=== PATIENT | female | born 1950 | race Caucasian/White ===

== ENCOUNTER 2016-12-07 15:07 | Inpatient (IN) | payer OTHER, MEDICARE ==
[2016-12-07] MEDS ORDERED: ACETAMINOPHEN 500 MG TAB PO ONE (15:18)
[2016-12-07] MEDS ORDERED: NS 1,000 ML IV ONE ×2 (15:28)
--- NOTE | 2016-12-07 15:28 | EDPHY ---
H & P Stated Complaint: fever, dizzy since this am, LBP, sent from pcp maral barrow? Time Seen by Provider: 12/07/16 15:27 HPI/ROS: CHIEF COMPLAINT: Fever, nausea, back pain HISTORY OF PRESENT ILLNESS: The patient presents to the ED with complaints of fever, nausea and mild low back pain that have developed over the past 2 days. The patient denies acute cough, significant abdominal pain, vomiting or diarrhea. She does complain of mild nausea. The patient denies dysuria or urinary frequency. She has no history of recent antibiotic use. She denies additional acute complaints. The patient was diagnosed with an intestinal E coli infection at the end of October. The patient was treated with an unknown antibiotic at that point time. She believe she stop taking antibiotics 3 weeks ago. REVIEW OF SYSTEMS: A comprehensive 10 point review of systems is otherwise negative aside from elements mentioned in the history of present illness. Source: Patient Exam Limitations: No limitations - Personal History Current Tetanus/Diphtheria Vaccine: Unsure Current Tetanus Diphtheria and Acellular Pertussis (TDAP): Unsure - Medical/Surgical History Hx Asthma: No Hx Chronic Respiratory Disease: No Hx Diabetes: No Hx Cardiac Disease: No Hx Renal Disease: No Hx Cirrhosis: No Hx Alcoholism: No Hx HIV/AIDS: No Hx Splenectomy or Spleen Trauma: No Other PMH: depression - Social History Smoking Status: Never smoked Alcohol Use: None Drug Use: None - Physical Exam Exam: General Appearance: Alert, no distress Eyes: Pupils equal and round no pallor or injection ENT, Mouth: Mucous membranes moist Respiratory: There are no retractions, lungs are clear to auscultation Cardiovascular: Regular rate and rhythm Gastrointestinal: Minimal tenderness to palpation in the left lower quadrant, mild left CVA tenderness Neurological: A&O, normal motor function, normal sensory exam, normal cranial nerves Skin: Warm and dry, no rashes Musculoskeletal: Neck is supple nontender Extremities: symmetrical, full range of motion Constitutional: Initial Vital Signs Temperature (C) 36.5 C 12/07/16 15:12 Heart Rate 86 12/07/16 15:12 Respiratory Rate 16 12/07/16 15:12 Blood Pressure 117/74 12/07/16 15:12 O2 Sat (%) 94 12/07/16 15:12 O2 Delivery Mode Room Air Allergies/Adverse Reactions: levofloxacin [From Levaquin] Allergy (Verified 07/25/11 10:46) Other-Enter Comments trimethoprim Allergy (Verified 07/25/11 10:45) LOBSTER Allergy (Uncoded 07/25/11 10:47) Vomiting Home Medications: Medication Instructions Recorded Aspirin [Aspirin 81mg (*)] 81 mg PO DAILY 12/07/16 Cholecalciferol Vit D3 [Vitamin D3 1,000 units PO DAILY 12/07/16 (*)] Clobetasol 0.05% [Temovate Cream] 1 jessica TP BID PRN 12/07/16 Escitalopram Oxalate [Lexapro] 5 mg PO DAILY@18 12/07/16 Losartan Potassium [Cozaar] 100 mg PO DAILY 12/07/16 Psyllium Husk/Aspartame [Metamucil 3.4 gm PO DAILY PRN 12/07/16 Fiber Singles Packet] Vitamin B Complex [B Complex] 1 each PO DAILY 12/07/16 Medical Decision Making ED Course/Re-evaluation: The patient presents to the ED with a fever of 104 and reported positive urinalysis noted at her primary care physician's office. Patient does have some left CVA tenderness on exam. The patient had an IV established and blood cultures x2 are obtained. Patient's initial venous lactate is reassuring. The patient's white cell count is slightly elevated and she is noted to have evidence of hyponatremia. A confirmatory urinalysis is currently pending. The patient did have an IV established. She received 2 L of normal saline. The patient will be started on IV ceftriaxone. Given the patient's fever and hyponatremia as well as concurrent generalized weakness I do feel she should be admitted to the hospital for observation this evening. Consultation was made with Dr. Brandi Robison from the hospitalist service who will admit the patient. 3:15pm: Still awaiting confirmatory UA. Follow-up will be deferred to hospitalist. Differential Diagnosis: Differential diagnosis considered includes bacteremia, pyelonephritis, cystitis , metabolic abnormality, dehydration, viral syndrome - Data Points Laboratory Results: Laboratory Results 12/07/16 15:44 12/07/16 15:44 12/07/16 12/07/16 12/07/16 15:44 15:44 15:44 WBC 10.61 10^3/uL H 10^3/uL (3.80-9.50) RBC 4.61 10^6/uL 10^6/uL (4.18-5.33) Hgb 14.4 g/dL g/dL (12.6-16.3) Hct 42.6 % % (38.0-47.0) MCV 92.4 fL fL (81.5-99.8) MCH 31.2 pg pg (27.9-34.1) MCHC 33.8 g/dL g/dL (32.4-36.7) RDW 13.8 % % (11.5-15.2) Plt Count 200 10^3/uL 10^3/uL (150-400) MPV 10.2 fL fL (8.7-11.7) Neut % (Auto) 87.8 % H % (39.3-74.2) Lymph % (Auto) 3.9 % L % (15.0-45.0) [place] % (Auto) 7.4 % % (4.5-13.0) Eos % (Auto) 0.0 % L % (0.6-7.6) Baso % (Auto) 0.2 % L % (0.3-1.7) Nucleat RBC Rel Count 0.0 % % (0.0-0.2) Absolute Neuts (auto) 9.32 10^3/uL H 10^3/uL (1.70-6.50) Absolute Lymphs (auto) 0.41 10^3/uL L 10^3/uL (1.00-3.00) Absolute Monos (auto) 0.79 10^3/uL 10^3/uL (0.30-0.80) Absolute Eos (auto) 0.00 10^3/uL L 10^3/uL (0.03-0.40) Absolute Basos (auto) 0.02 10^3/uL 10^3/uL (0.02-0.10) Absolute Nucleated RBC 0.00 10^3/uL 10^3/uL (0-0.01) Immature Gran % 0.7 % % (0.0-1.1) Immature Gran # 0.07 10^3/uL 10^3/uL (0.00-0.10) VBG Lactic Acid 1.7 mmol/L mmol/L (0.7-2.1) Sodium 125 mEq/L L mEq/L (134-144) Potassium 4.1 mEq/L mEq/L (3.5-5.2) Chloride 90 mEq/L L mEq/L (97-110) Carbon Dioxide 28 mEq/l mEq/l (22-31) Anion Gap 7 mEq/L L mEq/L (8-16) BUN 27 mg/dL H mg/dL (7-23) Creatinine 0.8 mg/dL mg/dL (0.6-1.0) Estimated GFR > 60 Glucose 134 mg/dL H mg/dL (70-100) Calcium 9.9 mg/dL mg/dL (8.5-10.4) Total Bilirubin 0.8 mg/dL mg/dL (0.1-1.4) Conjugated Bilirubin 0.4 mg/dL mg/dL (0.0-0.5) Unconjugated Bilirubin 0.4 mg/dL mg/dL (0.0-1.1) AST 32 IU/L IU/L (14-46) ALT 40 IU/L IU/L (9-52) Alkaline Phosphatase 58 IU/L IU/L (38-126) Total Protein 6.3 g/dL g/dL (6.3-8.2) Albumin 3.7 g/dL g/dL (3.5-5.0) Medications Given: Discontinued Medications Acetaminophen (Tylenol) 1,000 mg PO EDNOW ONE Stop: 12/07/16 15:19 Last Admin: 12/07/16 15:25 Dose: 1,000 mg Sodium Chloride (Ns) 1,000 mls @ 0 mls/hr IV ONCE ONE PRN Reason: Wide Open Stop: 12/07/16 15:29 Last Admin: 12/07/16 17:44 Dose: 1,000 mls Sodium Chloride (Ns) 1,000 mls @ 0 mls/hr IV ONCE ONE PRN Reason: Wide Open Stop: 12/07/16 15:29 Last Admin: 12/07/16 16:10 Dose: 1,000 mls Departure - Departure Disposition: [facility] Inpatient Acute Clinical Impression: Acute febrile illness, Dehydration, Hyponatremia Condition: Fair
[2016-12-07 16:04] LABS: % IMMATURE GRANULYOCYTES 0.7 % (0.0-1.1); ABSOLUTE IMMATURE GRANULOCYTES 0.07 10^3/uL (0.00-0.10); ADD DIFF? NO; ADD MORPH? NO; ADD SCAN? NO; ATYPICAL LYMPHOCYTE FLAG 10 (0-99); FRAGMENT RBC FLAG 0 (0-99); HEMATOCRIT 42.6 % (38.0-47.0); HEMOGLOBIN 14.4 g/dL (12.6-16.3); LEFT SHIFT FLG 0 (0-99); LIPEMIA HEMOLYSIS FLAG 90 (0-99); MEAN CELL HEMOGLOBIN 31.2 pg (27.9-34.1); MEAN CELL HEMOGLOBIN CONCENTR. 33.8 g/dL (32.4-36.7); MEAN CELL VOLUME 92.4 fL (81.5-99.8); MEAN PLATELET VOLUME 10.2 fL (8.7-11.7); PLATELET CLUMPS FLAG 0 (0-99); PLATELET COUNT 200 10^3/uL (150-400); RED BLOOD CELL COUNT 4.61 10^6/uL (4.18-5.33); RED CELL DISTRIBUTION WIDTH 13.8 % (11.5-15.2)
[2016-12-07 16:30] LABS: ALANINE AMINOTRANSFERASE 40 IU/L (9-52); ALBUMIN 3.7 g/dL (3.5-5.0); ALKALINE PHOSPHATASE 58 IU/L (38-126); ANION GAP 7 mEq/L (8-16); ASPARTATE AMINOTRANSFERASE 32 IU/L (14-46); BILIRUBIN,TOTAL 0.8 mg/dL (0.1-1.4); BILIRUBIN-CONJUGATED 0.4 mg/dL (0.0-0.5); BILIRUBIN-UNCONJUGATED 0.4 mg/dL (0.0-1.1); CALCIUM 9.9 mg/dL (8.5-10.4); CARBON DIOXIDE 28 mEq/l (22-31); CHLORIDE 90 mEq/L (97-110); CREATININE 0.8 mg/dL (0.6-1.0); GLOMERULAR FILTRATION RATE > 60; GLUCOSE 134 mg/dL (70-100); POTASSIUM 4.1 mEq/L (3.5-5.2); SODIUM 125 mEq/L (134-144); TOTAL PROTEIN 6.3 g/dL (6.3-8.2)
[2016-12-07] MEDS ORDERED: ONDANSETRON 4 MG/2 ML VIAL IVP PRN (17:18)
[2016-12-07] MEDS ORDERED: TEMAZEPAM 15 MG CAP PO PRN (17:18)
[2016-12-07] MEDS ORDERED: ONDANSETRON DISINTEGRATING 4 MG TAB PO PRN (17:18)
[2016-12-07] MEDS ORDERED: CLOBETASOL 0.05% 15 GM CRTUBE TP PRN (17:36)
[2016-12-07 17:37] LABS: COLOR AMBER; LEUKOCYTE ESTERASE,URINE NEGATIVE (NEGATIVE); NITRITE,URINE NEGATIVE (NEGATIVE)
[2016-12-07] MEDS ORDERED: CEFTRIAXONE 1 GM/DEXTROSE/50 ML BAG IV ONE (17:47)
[2016-12-07 17:49] LABS: MUCUS 1+ /lpf (NONE-1+)
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
--- NOTE | 2016-12-07 19:34 | CPEKG ---
Heart Rate: 57 RR Interval: 1053 P-R Interval: 196 QRSD Interval: 100 QT Interval: 404 QTC Interval: 394 P [place]: 65 QRS [place]: 18 T Wave [place]: 35 EKG Severity - BORDERLINE ECG - EKG Impression: SINUS RHYTHM EKG Impression: PROBABLE LEFT ATRIAL ABNORMALITY Electronically Signed By: Ayaan Emmanuel 08-Dec-2016 14:57:06
[2016-12-07] MEDS: ESCITALOPRAM OXALATE 10 MG TAB PO SCH (20:37)
[2016-12-07 20:47] LABS: ANION GAP 6 mEq/L (8-16); CALCIUM 8.6 mg/dL (8.5-10.4); CARBON DIOXIDE 25 mEq/l (22-31); CHLORIDE 97 mEq/L (97-110); CREATININE 0.6 mg/dL (0.6-1.0); GLOMERULAR FILTRATION RATE > 60; GLUCOSE 115 mg/dL (70-100); POTASSIUM 3.6 mEq/L (3.5-5.2); SODIUM 128 mEq/L (134-144)
[2016-12-07] MEDS ORDERED: NS W/ 20 KCl/L 1,000 ML IV SCH (21:15)
[2016-12-08] MEDS: ACETAMINOPHEN 325 MG TAB PO PRN ×4 (03:09→23:03)
[2016-12-08 06:07] LABS: % IMMATURE GRANULYOCYTES 0.5 % (0.0-1.1); ABSOLUTE IMMATURE GRANULOCYTES 0.04 10^3/uL (0.00-0.10); ADD DIFF? NO; ADD MORPH? NO; ADD SCAN? NO; ATYPICAL LYMPHOCYTE FLAG 0 (0-99); FRAGMENT RBC FLAG 0 (0-99); HEMATOCRIT 37.4 % (38.0-47.0); HEMOGLOBIN 12.5 g/dL (12.6-16.3); LEFT SHIFT FLG 10 (0-99); LIPEMIA HEMOLYSIS FLAG 80 (0-99); MEAN CELL HEMOGLOBIN CONCENTR. 33.4 g/dL (32.4-36.7); MEAN CELL VOLUME 92.8 fL (81.5-99.8); MEAN PLATELET VOLUME 10.6 fL (8.7-11.7); PLATELET CLUMPS FLAG 0 (0-99); PLATELET COUNT 171 10^3/uL (150-400); RED BLOOD CELL COUNT 4.03 10^6/uL (4.18-5.33); RED CELL DISTRIBUTION WIDTH 13.9 % (11.5-15.2)
[2016-12-08 06:25] LABS: ANION GAP 6 mEq/L (8-16); CALCIUM 8.8 mg/dL (8.5-10.4); CARBON DIOXIDE 22 mEq/l (22-31); CHLORIDE 101 mEq/L (97-110); CREATININE 0.6 mg/dL (0.6-1.0); GLOMERULAR FILTRATION RATE > 60; GLUCOSE 112 mg/dL (70-100); POTASSIUM 4.1 mEq/L (3.5-5.2); SODIUM 129 mEq/L (134-144)
[2016-12-08] MEDS: CHOLECALCIFEROL VIT D3 1,000 UNITS TAB PO SCH (08:56)
[2016-12-08] MEDS: ASPIRIN 81 MG CHEWABLE TAB PO SCH (08:56)
[2016-12-08] MEDS: AZITHROMYCIN IV 500 MG in D5W 250 ML IV SCH (10:02)
[2016-12-08] MEDS ORDERED: NON-FORMULARY NEW DRUG (Psyllium Husk/Aspartame [Metamucil Fiber Singles Packet] 3.4 GM) PO PRN (10:59)
[2016-12-08] MEDS ORDERED: PSYLLIUM METAMUCIL 1 PKT PO PRN (11:21)
[2016-12-08] MEDS: CALCIUM CARBONATE 500 MG TAB PO SCH (12:15)
--- NOTE | 2016-12-08 15:25 | HOSPPROG ---
Hospitalist Progress Note Assessment/Plan: 66-year-old female presents emergency room complaints of shortness of breath and weakness. This is my 1st encounter with the patient, chart reviewed. # pneumonia Chest x-ray shows left lower lobe infiltrate Continue IV Rocephin and azithromycin Supportive care # acute hypoxemic respiratory failure Continue supportive management # hyponatremia Improving Secondary to hypovolemia Continue supportive management Recheck labs in the a.m. # paroxysmal atrial fibrillation In normal sinus rhythm DC telemetry No further workup needed # disposition Continue supportive management Will transition to oral antibiotics when able Anticipate discharge in the next 1-2 days Changed to inpatient status given further need for IV antibiotic and supportive hospital care Reviewed with rn case mgr Subjective: Complaints of headache. Still having some periodic feelings of being cold. at bedside. No other specific issues. Objective: Vital Signs Temp Pulse Resp BP Pulse Ox 37.8 C 75 16 104/69 92 12/08/16 11:07 12/08/16 11:07 12/08/16 11:07 12/08/16 11:07 12/08/16 11:07 12/07/16 12/08/16 12/09/16 05:59 05:59 05:59 Intake Total 300 Output Total 150 Balance 150 - Physical Exam Constitutional: no apparent distress, not in pain, uncomfortable Eyes: PERRL, anicteric sclera, EOMI Ears, Nose, Mouth, Throat: moist mucous membranes, hearing normal, ears appear normal Cardiovascular: No JVD, No tachycardia, No edema Respiratory: no respiratory distress, no rales or rhonchi, reduced air movement Gastrointestinal: No tenderness, No ascites, No guarding Skin: warm, normal color, No erythema Musculoskeletal: normal joint ROM, no joint effusions, generalized weakness Neurologic: AAOx3 Psychiatric: interacting appropriately, not anxious, not encephalopathic ICD10 Worksheet Patient Problems: Problems Problem Status Onset Acute febrile illness Acute Dehydration Acute Hyponatremia Acute
[2016-12-08] MEDS ORDERED: NS 1,000 ML IV SCH (16:30)
[2016-12-08] MEDS: ESCITALOPRAM OXALATE 10 MG TAB PO SCH (16:43)
[2016-12-09] MEDS: AZITHROMYCIN IV 500 MG in D5W 250 ML IV SCH (08:05)
[2016-12-09] MEDS: CALCIUM CARBONATE 500 MG TAB PO SCH (08:10)
[2016-12-09] MEDS: ASPIRIN 81 MG CHEWABLE TAB PO SCH (08:10)
[2016-12-09] MEDS: CHOLECALCIFEROL VIT D3 1,000 UNITS TAB PO SCH (08:10)
[2016-12-09] MEDS: ACETAMINOPHEN 325 MG TAB PO PRN ×2 (08:11→17:54)
[2016-12-09] MEDS: VITAMIN B COMPLEX 1 EA CAP/TAB PO SCH (08:11)
[2016-12-09] MEDS ORDERED: VITAMIN B COMPLEX 1 EA CAP/TAB PO SCH (09:00)
[2016-12-09 09:27] LABS: HEMATOCRIT 35.9 % (38.0-47.0); HEMOGLOBIN 12.3 g/dL (12.6-16.3); MEAN CELL HEMOGLOBIN 31.5 pg (27.9-34.1); MEAN CELL HEMOGLOBIN CONCENTR. 34.3 g/dL (32.4-36.7); MEAN CELL VOLUME 92.1 fL (81.5-99.8); RED BLOOD CELL COUNT 3.9 10^6/uL (4.18-5.33); RED CELL DISTRIBUTION WIDTH 14.2 % (11.5-15.2)
[2016-12-09 09:52] LABS: ANION GAP 3 mEq/L (8-16); CARBON DIOXIDE 25 mEq/l (22-31); CHLORIDE 99 mEq/L (97-110); CREATININE 0.5 mg/dL (0.6-1.0); GLOMERULAR FILTRATION RATE > 60; GLUCOSE 132 mg/dL (70-100); POTASSIUM 3.5 mEq/L (3.5-5.2); SODIUM 127 mEq/L (134-144)
--- NOTE | 2016-12-09 11:04 | HOSPPROG ---
Hospitalist Progress Note Assessment/Plan: 66-year-old female presents emergency room complaints of shortness of breath and weakness. Reviewed with Dr Robison # pneumonia Chest x-ray shows left lower lobe infiltrate Continue IV Rocephin and azithromycin Supportive care BC NGTD # acute hypoxemic respiratory failure Continue supportive management better today #Fever BC NGTD likely related to PNA watch #Diarrhea cont to follow # hyponatremia multifactorial Secondary to hypovolemia and low salt diet Continue supportive management Recheck labs in the a.m. now with diarrhea fluid restriction, consider salt tabs if not improving # paroxysmal atrial fibrillation In normal sinus rhythm DC telemetry No further workup needed # disposition Continue supportive management Will transition to oral antibiotics when able Anticipate discharge in the next 1-2 days Changed to inpatient status given further need for IV antibiotic and supportive hospital care Reviewed with catalytic case operator D/W pt and at bedside Rec FU CXR 7 days after abx complete Subjective: Feeling ok. Had some diarrhea last night and today. Didn't sleep well. No pain currently. Objective: Vital Signs Temp Pulse Resp BP Pulse Ox 36.7 C 70 22 H 128/84 H 95 12/09/16 08:00 12/09/16 08:00 12/09/16 08:00 12/09/16 08:00 12/09/16 08:00 Laboratory Results 12/09/16 09:15 12/09/16 09:15 12/08/16 12/09/16 12/10/16 05:59 05:59 05:59 Intake Total 1650 Output Total 1350 Balance 300 - Physical Exam Constitutional: appears nourished, not in pain, chronically ill appearing Eyes: PERRL, anicteric sclera, EOMI Ears, Nose, Mouth, Throat: moist mucous membranes, hearing normal, ears appear normal Cardiovascular: No JVD, No tachycardia, No bradycardia Respiratory: no respiratory distress, no rales or rhonchi, reduced air movement Gastrointestinal: No tenderness, No ascites, No guarding Skin: warm, normal color, No erythema Musculoskeletal: normal joint ROM, no joint effusions, generalized weakness Neurologic: AAOx3 Psychiatric: interacting appropriately, not encephalopathic, thought process linear, anxious ICD10 Worksheet Patient Problems: Problems Problem Status Onset Chronic Disease Mgmt/Transitional Care Acute Acute febrile illness Acute Dehydration Acute Hyponatremia Acute
[2016-12-09] MEDS: ESCITALOPRAM OXALATE 10 MG TAB PO SCH (17:55)
[2016-12-10] MEDS: oxyCODONE IR 5 MG TAB PO PRN ×2 (00:10→04:31)
[2016-12-10] MEDS: ACETAMINOPHEN 325 MG TAB PO PRN (05:00)
[2016-12-10 06:01] LABS: ANION GAP 4 mEq/L (8-16); CARBON DIOXIDE 27 mEq/l (22-31); CHLORIDE 101 mEq/L (97-110); CREATININE 0.5 mg/dL (0.6-1.0); GLOMERULAR FILTRATION RATE > 60; GLUCOSE 91 mg/dL (70-100); POTASSIUM 3.6 mEq/L (3.5-5.2); SODIUM 132 mEq/L (134-144)
[2016-12-10 07:44] VITALS: BP 115/77; PULSE 62; RESP 18; TEMP 99.1; O2SAT 93
[2016-12-10] MEDS: ASPIRIN 81 MG CHEWABLE TAB PO SCH (08:49)
[2016-12-10] MEDS: CHOLECALCIFEROL VIT D3 1,000 UNITS TAB PO SCH (08:49)
[2016-12-10] MEDS: VITAMIN B COMPLEX 1 EA CAP/TAB PO SCH (08:49)
[2016-12-10] MEDS: CALCIUM CARBONATE 500 MG TAB PO SCH (08:49)
[2016-12-10] MEDS: AZITHROMYCIN IV 500 MG in D5W 250 ML IV SCH (08:50)
--- NOTE | 2016-12-10 15:37 | GDS ---
[f rep st] DISCHARGE SUMMARY DISCHARGE DIAGNOSES: Include. 1. Community-acquired pneumonia. 2. Acute hypoxic respiratory failure secondary to community-acquired pneumonia. 3. Hyponatremia secondary to hypovolemia. HISTORY OF PRESENT ILLNESS: A 66-year-old female who presents to the emergency department with comp laints of shortness of breath. For details of patient's initial presentation, please see the histor y and physical dated 12/07/2016. CONSULTATIVE SERVICES: None. PROCEDURES: On 12/07/2016, patient had a PA and lateral chest x-ray and focal infiltrate of the lef t upper lobe. HOSPITAL COURSE: By issue. 1. Community-acquired pneumonia. The patient had blood cultures drawn which have remained prelimin gloria. No growth to date. She was started on empiric IV antibiotics and provided supportive care, in cluding IV fluid resuscitation. On the day of disposition, patient's oxygen saturations are in the 90s on room air. She will be discharged to complete a full course of antibiotics with oral azithrom ycin secondary to allergy to levofloxacin and follow in the outpatient setting with her primary care provider post completion of her antibiotic course. 2. History of hypertension. The patient has had low blood pressures during this hospital stay. We are holding her blood pressure medications at disposition with recommendations that she check her b lood pressures daily at home and follow again with her primary care provider for re-initiation of an tibiotics. 3. Hyponatremia secondary to hypovolemia. The patient did receive fluid resuscitation. We are enc ouraging good oral solute intake as well. On the day of disposition, the patient's sodium has impro adi from 125-132. Again, we recommend that her outpatient provider check followup labs post disposi tion. MEDICATIONS AT THE TIME OF DISPOSITION: Please reference medication reconciliation printed on 12/10. FOLLOWUP APPOINTMENTS: Include with her primary care provider, Dr. Fuentes, for a blood pressure an d laboratory check in 7-10 days post disposition. PENDING STUDIES: At the time of this dictation, include blood cultures drawn from admission which a re preliminary. No growth to date. I spent greater than 30 minutes in the planning and coordination of this discharge. /[id number]/MODL
== END 2016-12-10 11:43 | disposition home or self-care (01) | DRG 193 ==
LOC: F3E 18:19 → OBSVTOIN 12-08 11:02
PROVIDERS: ADMIT Hospitalist; ATTEND Hospitalist
DX: J18.9 Pneumonia, unspecified organism (principal); J96.01 Acute respiratory failure with hypoxia; E87.1 Hypo-osmolality and hyponatremia; I48.0 Paroxysmal atrial fibrillation; M54.5 Low back pain; M51.36 Other intervertebral disc degeneration, lumbar region; I10 Essential (primary) hypertension; Z79.82 Long term (current) use of aspirin
CPT/HCPCS: G0378; J0456; J0696

== ENCOUNTER → 2017-02-03 | Outpatient (CLI) | payer OTHER, MEDICARE | LOC: FIMAGING 12:14 | PROVIDERS: ATTEND Internal Medicine | DX: J18.1 Lobar pneumonia, unspecified organism (principal); J90 Pleural effusion, not elsewhere classified ==

== ENCOUNTER → 2017-03-24 | Outpatient (CLI) | payer OTHER, MEDICARE | LOC: BMCIMAGING 09:37 | PROVIDERS: ATTEND Internal Medicine | DX: R05 Cough (principal); I51.7 Cardiomegaly ==

== ENCOUNTER → 2017-06-15 | Outpatient (CLI) | payer OTHER, MEDICARE | LOC: FIMAGING 09:22 | PROVIDERS: ATTEND Surgery | DX: E21.3 Hyperparathyroidism, unspecified (principal) | CPT/HCPCS: 76536; 78070; A9500 ==

== ENCOUNTER → 2017-07-04 | Outpatient (CLI) | payer OTHER, MEDICARE ==
[~2017-07-04] MED LIST: IOPAMIDOL (ISOVUE-300) 100 ML BTL ONE
== END ==
LOC: FIMAGING 10:04
PROVIDERS: ATTEND Surgery
DX: E21.3 Hyperparathyroidism, unspecified (principal)
CPT/HCPCS: 70492; Q9967

== ENCOUNTER 2017-09-22 12:02 | Inpatient (IN) | payer OTHER, MEDICARE ==
[2017-10-06] MEDS ORDERED: BUPIVACAINE 0.25% 30 ML SDV ONE (10:15)
[2017-10-06] MEDS ORDERED: THROMBIN (BOVINE) 5,000 UNIT VIAL TP ONE (10:16)
[2017-10-06] MEDS ORDERED: MIDAZOLAM 2 MG/2 ML VIAL IVP ONE (10:19)
--- NOTE | 2017-10-06 10:20 | PDANEPAE ---
ANE History of Present Illness parathyroidectomy ANE Past Medical History - Cardiovascular History Hx Hypertension: Yes Hx Arrhythmias: No Hx Chest Pain: No Hx Coronary Artery / Peripheral Vascular Disease: No Hx CHF / Valvular Disease: Yes Hx Palpitations: No Cardiovascular History Comment: MVP - Pulmonary History Hx COPD: No Hx Asthma/Reactive Airway Disease: No Hx Recent Upper Respiratory Infection: No Hx Oxygen in Use at Home: No Hx Sleep Apnea: No Sleep Apnea Screening Result - Last Documented: Negative - Neurologic History Hx Cerebrovascular Accident: No Hx Seizures: No Hx Dementia: No - Endocrine History Hx Diabetes: No - Renal History Hx Renal Disorders: No - Liver History Hx Hepatic Disorders: No - Neurological & Psychiatric Hx Hx Neurological and Psychiatric Disorders: Yes Neurological / Psychiatric History Comment: mild depression - Cancer History Hx Cancer: No - Congenital Disorder History Hx Congenital Disorders: No - GI History Hx Gastrointestinal Disorders: No - Other Health History Other Health History: hx sinus infections - Chronic Pain History Chronic Pain: No - Surgical History Prior Surgeries: hysterectomy. ganglion cyst removal. hand surgery ANE Review of Systems Review of systems is: negative Review of Systems: - Exercise capacity METS (RN): 4 METS ANE Patient History - Allergies Allergies/Adverse Reactions: scopolamine Allergy (Intermediate, Verified 09/01/17 14:18) Rash adhesive tape Allergy (Verified 09/01/17 10:46) levofloxacin [From Levaquin] Allergy (Verified 07/25/11 10:46) Other-Enter Comments trimethoprim Allergy (Verified 07/25/11 10:45) LOBSTER Allergy (Uncoded 07/25/11 10:47) Vomiting - Home Medications Home medications: home medication list seen and reviewed Home Medications: Aspirin EC [Aspirin EC 81 mg (*)] 81 mg PO DAILY 09/01/17 [Last Taken 09/27/17] Cholecalciferol Vit D3 [Vitamin D3 (*)] 1,000 units PO DAILY 09/01/17 [Last Taken 09/27/17] Clobetasol Propionate/Emoll [Clobetasol Emulsion 0.05% Foam] 1 jessica TP DAILY PRN 09/01/17 [Last Taken 09/22/17] Escitalopram Oxalate [Lexapro] 5 mg PO DAILY 09/01/17 [Last Taken 10/05/17 20:00 ] Herbals/Supplements -Info Only 1 ea PO DAILY 09/01/17 [Last Taken 10/05/17] Losartan Potassium [Cozaar] 100 mg PO DAILY 09/01/17 [Last Taken 10/06/17 07:00] Magnesium Oxide [Magnesium Oxide 500 mg] 250 mg PO DAILY 09/01/17 [Last Taken ] Avoca-3 Fatty Acids [Fish Oil 1000 mg (*)] 1,000 mg PO DAILY 09/01/17 [Last Taken 09/27/17] Psyllium Husk (with Sugar) [Metamucil Powder] 1 tsp PO DAILY 09/01/17 [Last Taken 10/05/17 05:00] Vitamin B Complex [B Complex] 1 each PO DAILY 09/01/17 [Last Taken 09/27/17] - NPO status NPO Since - Liquids (Date): 10/06/17 NPO Since - Liquids (Time): 07:00 NPO Since - Solids (Date): 10/05/17 NPO Since - Solids (Time): 19:30 - Anes Hx Anes Hx: no prior problems - Smoking Hx Smoking Status: Never smoked - Family Anes Hx Family Anes Hx: none Family Hx Anesthesia Complications: none ANE Labs/Vital Signs - Vital Signs Blood Pressure: 146/88 Heart Rate: 69 Respiratory Rate: 15 O2 Sat (%): 94 Height: 167.64 cm Weight: 56.245 kg ANE Physical Exam - Airway Neck exam: FROM Mallampati Score: Class 1 Mouth exam: normal dental/mouth exam - Pulmonary Pulmonary: no respiratory distress - Cardiovascular Cardiovascular: regular rate and rhythym - ASA Status ASA Status: II ANE Anesthesia Plan Anesthesia Plan: general endotracheal anesthesia
[2017-10-06] MEDS ORDERED: ceFAZolin 2 GM/SWFI 2 GM/20 ML SYR IVP ONE (10:24)
[2017-10-06] MEDS ORDERED: MIDAZOLAM 2 MG/2 ML VIAL ONE (10:27)
[2017-10-06] MEDS ORDERED: EMOLL TP PRN (10:30)
[2017-10-06] MEDS ORDERED: NON-FORMULARY NEW DRUG (Escitalopram Oxalate [Lexapro] 5 MG) PO SCH (10:30)
[2017-10-06] MEDS ORDERED: CLOBETASOL PROPIONATE TP PRN (10:30)
[2017-10-06] MEDS ORDERED: PROPOFOL 200 MG/20 ML VIAL ONE (10:36)
[2017-10-06] MEDS ORDERED: ROCURONIUM 50 MG/5 ML VIAL ONE (10:36)
[2017-10-06] MEDS ORDERED: fentaNYL 250 MCG/5 ML INJ ONE (10:36)
[2017-10-06] MEDS ORDERED: ONDANSETRON 4 MG/2 ML VIAL ONE (10:36)
[2017-10-06] MEDS ORDERED: LIDOCAINE 2% 100 MG/5 ML SYR ONE (10:36)
[2017-10-06] MEDS ORDERED: DEXAMETHASONE 4 MG/ML VIAL ONE (10:36)
--- NOTE | 2017-10-06 10:36 | PDHPUP ---
History & Physical Update H&P update statement: This history and physical update is based on an assessment of the patient which was completed after admission or registration (within 24 hours), but prior to the surgery/procedure. H&P update: H&P reviewed & patient examined, no change in patient's condition since H&P completed
[2017-10-06] MEDS ORDERED: HYDROCODONE/APAP 5/325 TAB PO PRN (12:08)
[2017-10-06] MEDS ORDERED: DEXAMETHASONE 4 MG/ML VIAL IVP PRN (12:08)
[2017-10-06] MEDS ORDERED: NALOXONE HCL 0.4 MG/ML INJ IVP PRN (12:08)
[2017-10-06] MEDS ORDERED: PROMETHAZINE HCL 25 MG/ML INJ IVP PRN (12:08)
[2017-10-06] MEDS ORDERED: LR 500 ML IV PRN (12:08)
[2017-10-06] MEDS ORDERED: HYDROmorphONE/DILAUDID 1 MG/ML INJ IVP PRN (12:08)
[2017-10-06] MEDS ORDERED: OXYCODONE/APAP 5/325 TAB PO PRN (12:08)
[2017-10-06] MEDS ORDERED: ACETAMINOPHEN 500 MG TAB PO PRN (12:08)
[2017-10-06] MEDS ORDERED: MEPERIDINE 25 MG/ML SYR IVP PRN (12:08)
--- NOTE | 2017-10-06 12:10 | POSTANESTH ---
Post Anesthetic Evaluation Cardiovascular Status: Normal, Stable, Similar to Pre-Op Cond Respiratory Status: Normal, Stable, Similar to Pre-op Cond. Level of Consciousness/Mental Status: Can Participate in Eval, Mildly Sleepy, Arousable Pain Control: Adequate, Prn Tx Ordered Nausea/Vomiting Control: Adequate, Prn Tx Ordered Complications Possibly Related to Anesthesia: None Noted
[2017-10-06] MEDS ORDERED: ONDANSETRON 4 MG/2 ML VIAL IVP PRN (12:14)
[2017-10-06] MEDS ORDERED: hydrALAZINE 20 MG/ML VIAL ONE (13:41)
[2017-10-06] MEDS ORDERED: fentaNYL 100 MCG/2 ML INJ ONE (15:32)
[2017-10-06] MEDS: fentaNYL 100 MCG/2 ML INJ IVP PRN ×2 (15:33→16:16)
--- NOTE | 2017-10-06 15:44 | POSTOPPROG ---
Post Op Note Date of Operation: 10/06/17 Surgeon: Merlin Gr (, FACS) Shirt Marker: Bala Hortno RN-FA Anesthesiologist: Tomi Inman MD Anesthesia: GET(General Endotracheal) Pre-op Diagnosis: hyperparathyroidism Post-op Diagnosis: same + ectopic thyroid nodules Procedure: parathyroidectomy/excsion thyroid nodule x 3 Findings: LLpole adenoma with appropriated decline in PTH Inf/Abcess present in the surg proc area at time of surgery?: No EBL: 50-100 (50 ml) Drains: Mejia Hou Specimen(s): 1. right inferior pole ectopic thyroid nodule 2. left inferior pole ectopic thyroid nodule 3. right inferior pole thyroid nodule 4. right inferior level lymph node 5. portion of right superior parathyroid 6. portion of right inferior parathyroid 7. left inferior parathyroid adenoma (found in the left thymic slip) 8. 9. 10. 11. right carotic sheath lymph node, left posterior thyroid lymph node , portion left thymic slip, left inferior level lymph node
[2017-10-06] MEDS ORDERED: ESCITALOPRAM OXALATE 10 MG TAB PO SCH (16:00)
[2017-10-06] MEDS: CALCITRIOL 0.25 MCG CAP PO SCH (17:23)
[2017-10-06] MEDS: CALCIUM CARBONATE 500 MG CHEWABLE TAB PO SCH ×2 (17:23→20:28)
[2017-10-06] MEDS: ESCITALOPRAM OXALATE 10 MG TAB PO SCH (20:27)
[2017-10-06] MEDS: traMADol 50 MG TAB PO PRN (23:04)
--- NOTE | 2017-10-06 23:13 | GOP ---
[f rep st] OPERATIVE REPORT DATE OF OPERATION: 10/06/2017 SURGEON: Merlin Gr MD, FACS INCIDENT ANALYST: Sulma Horton RN-FA ANESTHESIA: General endotracheal. ANESTHESIOLOGIST: oTmi Inman MD PREOPERATIVE DIAGNOSIS: Hyperparathyroidism. POSTOPERATIVE DIAGNOSIS: 1. Hyperparathyroidism. 2. Multiple ectopic thyroid nodules. 3. Cervical lymphadenopathy. PROCEDURE PERFORMED: 1. Parathyroidectomy. 2. Excision of bilateral ectopic thyroid nodules. 3. Excisional biopsy, multiple level 6 lymph nodes and portion of left thymic slip. FINDINGS: Left inferior pole parathyroid adenoma found in the thymic slip with appropriate decline in the PTH level from a preop baseline of 118 to 14.3, intraoperatively. SPECIMENS: Additional samples submitted included right inferior pole ectopic thyroid nodule, left inferior pole ectopic thyroid nodule, right inferior pole thyroid nodule, right inferior level 6 lymph node, portion of right superior parathyroid gland for confirmation, portion of right inferior parathyroid gland for confirmation, right carotid sheath lymph node, left posterior thyroid lymph node, portion of left thymic slip, and left inferior level 6 lymph node. ESTIMATED BLOOD LOSS: 50 mL. DESCRIPTION OF PROCEDURE: After informed consent was obtained, the patient was brought to the operating room and placed under general anesthesia. The neck incision was previously marked. A gel pad was placed between the scapulae and a gel donut placed for the occiput of the skull. The patient's neck was kept in neutral position. Both arms were tucked. The neck was prepped and draped in usual fashion. Before proceeding, a World Health Organization approved time- out was performed. The skin and subcutaneous tissues were infiltrated with 0.25% Marcaine, incised in between the heads of the sternocleidomastoid muscle, and dissection carried through the skin and subcutaneous tissues. Platysma muscle flaps were elevated cephalad to the cricothyroid membrane and inferiorly to the suprasternal notch. The strap muscles were mobilized in the midline and dissection was carried out 1st on the right-hand side. The thyroid gland was moderately vascular. The middle thyroid vein was identified and taken down with the Harmonic Scalpel and the gland rotated medially. A nodule detached from the thyroid was identified and appeared darker than a typical parathyroid, but was clearly abnormal. This was excised and submitted for frozen section and represented an ectopic thyroid nodule consistent with a multinodular goiter. The recurrent laryngeal nerve was identified and dissected toward the ligament of Avelar. Additional tissue was not identified in the inferior pole position initially that appeared suspicious for parathyroid tissue. The left side was dissected in a similar fashion and an ectopic thyroid nodule was also found on the left- hand side. This was excised and submitted for frozen section. The left recurrent laryngeal nerve was identified and preserved in the course of dissection. Subsequent dissection of both sides proved difficult as the patient had multiple small lymph nodes, and some of these were excised and submitted for permanent section after they were devascularized. An additional right posterior inferior parathyroid nodule was excised and submitted for histologic confirmation as well as a right inferior level 6 lymph node. Ultimately, the right superior parathyroid gland was identified deep to the tracheoesophageal groove, and this was sampled; a small portion was removed with a 15-scalpel blade and hemostasis secured with topical Surgicel. This was submitted for frozen section and was confirmed to be a parathyroid gland, though did not appear hypercellular. This gland was marked with a 6-0 Prolene suture. The right thymic slip was then pulled into the field with blunt dissection and a small parathyroid gland was identified within the parenchyma of the thymic slip. A small specimen was submitted for histologic confirmation and this also was confirmed to be a normal cellular parathyroid gland. It was also marked with a 6-0 Prolene suture for future identification. Returning to the left neck, the left thymic slip was pulled into the field and dissected, noted to contain an enlarged parathyroid gland measuring approximately 6 x 7 x 4 mm, and this was dissected away from the thymic tissue which had been removed in the process and was submitted for frozen section confirmation. Ten minutes after this gland was removed, parathyroid hormone levels were obtained and subsequently were found to have dropped from 118 to 14.3. The left superior parathyroid gland was never confirmed by visual inspection. The remaining lymph nodes that were removed were submitted for permanent section. Hemostasis was secured within the operative field throughout the case using bipolar cautery, Harmonic Scalpel and topical pressure with Surgicel. Hemostasis appeared secure upon completion. A 15-Azeri round silicone drain was brought through a separate stab wound, placed anterior to the trachea. Strap muscles were closed over the drain with 3-0 Monocryl sutures. Platysma and subcutaneous tissues were closed with 3-0 Monocryl suture and the skin closed with 4-0 Monocryl suture in a subcuticular fashion. Topical Dermabond was applied. The drain was secured to the skin with 2-0 nylon suture. The patient was extubated and returned to the recovery room in satisfactory condition. Needle, sponge, and instrument count were correct. COMPLICATIONS: None. OPERATIVE TIME: 4 hours. /[id number]/MODL MTDD
[2017-10-07] MEDS: traMADol 50 MG TAB PO PRN ×3 (05:37→20:35)
[2017-10-07] MEDS ORDERED: OXYCODONE/APAP 5/325 TAB PO PRN (08:50)
[2017-10-07] MEDS ORDERED: Herbals/Supplements -Info Only PO SCH (09:00)
[2017-10-07] MEDS ORDERED: NON-FORMULARY NEW DRUG (Losartan Potassium [Cozaar] 100 MG) PO SCH (09:00)
[2017-10-07] MEDS ORDERED: [UNRECOGNIZED DRUG - OTHER] PO SCH (09:00)
--- NOTE | 2017-10-07 09:06 | SOAPPROG ---
SOAP Progress Note Assessment/Plan: Assessment: s/p extensive neck dissection for hyperparathyroidism requiring excision of multiple thyroid nodules, lymph nodes, thymic slips post op hypoxia, likely due to atelectasis, requiring supplemental O2 hypocalcemia with repeat Ca++ 8.4 w/ PTH 10.8 moderated drainage from MAYDA Plan: continue observation/serial Ca++ IS, increase activity anticipate discharge tomorrow 10/07/17 09:03 Subjective: moderate pain/mild dysphagia/ELLIOTT Objective: Vital Signs Temp Pulse Resp BP Pulse Ox 37.1 C 79 116 H 101/66 95 10/07/17 07:40 10/07/17 07:40 10/07/17 07:40 10/07/17 07:40 10/07/17 07:40 10/06/17 10/07/17 10/08/17 05:59 05:59 05:59 Intake Total 3690 Output Total 2045 Balance 1645 - Pending Discharge Pending Discharge Within 24 Hours: Yes Pending Discharge Date: 10/08/17 Pending Discharge Time: 11:00 Physical Exam - Physical Exam General Appearance: alert, mild distress EENT: other (neck incision healing with moderate bruising/swelling/MAYDA drainage serous) Respiratory: lungs clear, decreased breath sounds Cardiac/Chest: regular rate, rhythm, extra beats Neuro/Psych: other (negative Chvostek's sign) ICD10 Worksheet Patient Problems: Problems Problem Status Onset Acute febrile illness Acute Chronic Disease [facility]/Transitional Care Acute Dehydration Acute Hyponatremia Acute
[2017-10-07] MEDS: ENOXAPARIN 40 MG/0.4 ML SYR SC SCH (09:44)
[2017-10-07] MEDS: CALCITRIOL 0.25 MCG CAP PO SCH (09:45)
[2017-10-07] MEDS: VITAMIN B COMPLEX 1 EA CAP/TAB PO SCH (09:45)
[2017-10-07] MEDS: SENNOSIDES/DOCUSATE SODIUM TAB PO SCH ×2 (09:45→20:30)
[2017-10-07] MEDS: CALCIUM CARBONATE 500 MG CHEWABLE TAB PO SCH ×3 (09:45→20:30)
[2017-10-07] MEDS: ASPIRIN EC 81 MG TAB PO SCH (09:45)
[2017-10-07] MEDS: LOSARTAN POTASSIUM 50 MG TAB PO SCH (09:45)
[2017-10-07] MEDS: PSYLLIUM METAMUCIL 1 PKT PO SCH (09:46)
[2017-10-07] MEDS: OMEGA-3 FATTY ACIDS 1,000 MG CAP PO SCH (09:58)
--- NOTE | 2017-10-07 17:15 | ASMTCMCOM ---
CM Note CM Note Notes: Pt. is a 67-year-old woman admitted for thyroid surgery. Has a pramod drain. Anticipate drain removal prior to d/c. Pt. lives w/ her . Anticipate indpendent d/c when ready. CM available should d/c POC change. Date Signed: 10/07/2017 05:14 PM Electronically Signed By:Moira Wakefield LCSW
[2017-10-07] MEDS: ESCITALOPRAM OXALATE 10 MG TAB PO SCH (20:31)
[2017-10-08] MEDS: ACETAMINOPHEN 325 MG TAB PO PRN ×2 (08:24→19:24)
[2017-10-08] MEDS: ENOXAPARIN 40 MG/0.4 ML SYR SC SCH (09:43)
[2017-10-08] MEDS: PSYLLIUM METAMUCIL 1 PKT PO SCH (09:45)
[2017-10-08] MEDS: ASPIRIN EC 81 MG TAB PO SCH (09:46)
[2017-10-08] MEDS: VITAMIN B COMPLEX 1 EA CAP/TAB PO SCH (09:46)
[2017-10-08] MEDS: CALCITRIOL 0.25 MCG CAP PO SCH ×2 (09:46→21:16)
[2017-10-08] MEDS: CALCIUM CARBONATE 500 MG CHEWABLE TAB PO SCH ×3 (09:46→21:18)
[2017-10-08] MEDS: SENNOSIDES/DOCUSATE SODIUM TAB PO SCH ×2 (09:46→21:16)
[2017-10-08] MEDS: OMEGA-3 FATTY ACIDS 1,000 MG CAP PO SCH (09:46)
[2017-10-08] MEDS: LOSARTAN POTASSIUM 50 MG TAB PO SCH (09:46)
--- NOTE | 2017-10-08 13:02 | SOAPPROG ---
SOAP Progress Note Assessment/Plan: Assessment: s/p extensive neck dissection for hyperparathyroidism requiring excision of multiple thyroid nodules, lymph nodes, thymic slips post op hypoxia, likely due to atelectasis, requiring supplemental O2 hypocalcemia with repeat Ca++ 7.6 PTH 9 Plan: continue observation/serial Ca++ IS, increase activity anticipate discharge Monday10/09/17 10/07/17 09:03 10/08/17 13:01 Subjective: resting more comfortably/still requiring supplemental O2 Objective: Vital Signs Temp Pulse Resp BP Pulse Ox 37.1 C 60 14 102/67 95 10/08/17 11:32 10/08/17 11:32 10/08/17 11:32 10/08/17 11:32 10/08/17 11:32 10/07/17 10/08/17 10/09/17 05:59 05:59 05:59 Intake Total 3690 Output Total 2044 2140 Balance 1645 -2140 Physical Exam - Physical Exam General Appearance: alert EENT: other (neck incision healing well/moderate ecchymosis/MAYDA drain minimal output-removed) Respiratory: lungs clear, decreased breath sounds Cardiac/Chest: regular rate, rhythm ICD10 Worksheet Patient Problems: Problems Problem Status Onset Acute febrile illness Acute Chronic Disease Mgmt/Transitional Care Acute Dehydration Acute Hyponatremia Acute
--- NOTE | 2017-10-08 13:50 | ASMTCMCOM ---
CM Note CM Note Notes: Chart reviewed. Monitoring Calcium levels. Still requiring supplemental oxygen. No therapies ordered, Likely dc home independent. CM available should needs arise. Date Signed: 10/08/2017 01:50 PM Electronically Signed By:Fawn Velez RN
[2017-10-08] MEDS: ESCITALOPRAM OXALATE 10 MG TAB PO SCH (21:17)
[2017-10-09] MEDS: ACETAMINOPHEN 325 MG TAB PO PRN ×2 (04:13→09:05)
--- NOTE | 2017-10-09 06:52 | PDDCSUM ---
Discharge Summary Discharge Summary: #[id number] DC Summary dictated Matias Gr MD, FACS
--- NOTE | 2017-10-09 07:21 | GDS ---
[f rep st] DISCHARGE SUMMARY DISCHARGE DIAGNOSES: 1. Hyperparathyroidism. 2. Multiple thyroid nodules. 3. Hypertension. 4. History of depression. 5. History of constipation. 6. Postoperative hypoxemia. 7. Transient postoperative hypocalcemia. 8. Osteoporosis. PROCEDURE PERFORMED: 10/06/2017 parathyroidectomy and excision of multiple thyroid nodules. HOSPITAL COURSE: For details of admission history and physical, please see dictated summary. Briefly, the patient is a 67-year-old female with symptomatic hyperparathyroidism manifested as osteoporosis. Patient was admitted for elective parathyroidectomy. Preoperative imaging suggested possible adenomas bilaterally immediately posterior to the thyroid on the right and left in the midportion. At the time of surgery, patient was found to have ectopic thyroid nodules, 3 of which were removed and confirmed histologically. The parathyroid glands proved more elusive, and ultimately a normal gland was found in the right superior and right inferior position, though the right inferior gland was inside the thymic slip. The parathyroid adenoma was ultimately found in the left inferior position, also within the thymic slip. The left superior gland was not confirmed. The right-sided glands were marked with suture. Because of the extent of the operation, the drain was left in place. Patient was extubated postoperatively, required supplemental oxygen throughout her hospital stay, and had transient hypocalcemia dropping to 7.6 on the second postoperative day. She had been started on calcitriol following surgery, and this was increased to 0.25 mcg b.i.d., in addition to calcium carbonate 1000 mg p.o. t.i.d. Repeat calcium was 8.4. PTH postoperatively dropped to 9. On the day of discharge, patient felt improved. She had had some postoperative headache, and this responded to oral Tylenol. She received DVT prophylaxis with Lovenox. This was discontinued at time of discharge. She also had SCD stockings in place. Her drain was removed on the second postoperative day, and her incision was healing well without signs of infection. CONDITION: At the time of discharge, improved. DISCHARGE MEDICATIONS: Tylenol 650 mg p.o. q.4 hours p.r.n. pain; aspirin 81 mg p.o. q. day; calcitriol 0.25 mcg p.o. b.i.d.; calcium carbonate 1000 mg p.o. t.i.d.; clobetasol emulsion 1 application daily; escitalopram 5 mg p.o. q.h.s.; losartan 100 mg p.o. q. day; omega-3 fatty acids; oxycodone 1 p.o. q.4 hours p.r.n. pain; psyllium husk 575 g p.o. daily; Senokot-S 1 p.o. b.i.d.; vitamin B complex; and multivitamins. /[id number]/MODL MTDD
[2017-10-09] MEDS: CALCIUM CARBONATE 500 MG CHEWABLE TAB PO SCH (09:06)
[2017-10-09] MEDS: VITAMIN B COMPLEX 1 EA CAP/TAB PO SCH (09:06)
[2017-10-09] MEDS: OMEGA-3 FATTY ACIDS 1,000 MG CAP PO SCH (09:06)
[2017-10-09] MEDS: CALCITRIOL 0.25 MCG CAP PO SCH (09:07)
[2017-10-09] MEDS: ASPIRIN EC 81 MG TAB PO SCH (09:07)
[2017-10-09] MEDS: PSYLLIUM METAMUCIL 1 PKT PO SCH (09:07)
[2017-10-09] MEDS: SENNOSIDES/DOCUSATE SODIUM TAB PO SCH (09:07)
[2017-10-09] MEDS: LOSARTAN POTASSIUM 50 MG TAB PO SCH (09:08)
[2017-10-09] MEDS: ENOXAPARIN 40 MG/0.4 ML SYR SC SCH (09:10)
[2017-10-09 09:16] VITALS: BP 117/76; PULSE 71; RESP 15; TEMP 97.4; O2SAT 89
--- NOTE | 2017-10-09 14:08 | ASDISCHSUM ---
Discharge Information Plan Status:Home with No Needs Medically Cleared to Leave:10/08/2017 Discharge Date:10/09/2017 11:16 AM CM D/C Disposition: ADT D/C Disposition:Home, Routine, Self-Care Projected Discharge Date:10/09/2017 12:00 AM Transportation at D/C: Discharge Delay Reason: Follow-Up Date:10/09/2017 12:00 AM Discharge Slot: Final Diagnosis: Placement Information Patient Contact Information Contact Name:BRYCE Relationship: Address:[address] City:[place] Alternate Phone: State/Zip Code:[place] [address] Email: Financial Information Financial Class: Primary Plan Desc:MEDICARE INPATIENT Primary Plan Number:[id number] Secondary Plan Desc:[employer]/MDR SUPPLEMENT Secondary Plan Number:[id number] Assessment Information [facility] CM Progress Note CM Note CM Note Notes: Pt. is a 67-year-old woman admitted for thyroid surgery. Has a pramod drain. Anticipate drain removal prior to d/c. Pt. lives w/ her . Anticipate indpendent d/c when ready. CM available should d/c POC change. Date Signed: 10/07/2017 05:14 PM Electronically Signed By:Moira Wakefield LCSW [facility] CM Progress Note CM Note CM Note Notes: Chart reviewed. Monitoring Calcium levels. Still requiring supplemental oxygen. No therapies ordered, Likely dc home independent. CM available should needs arise. Date Signed: 10/08/2017 01:50 PM Electronically Signed By:Fawn Velez RN Intervention Information
== END 2017-10-09 11:16 | disposition home or self-care (01) | DRG 626 ==
LOC: F3E 10-06 09:02 → OBSVTOIN 10-06 09:02 → INTOOBSV 10-06 09:02 → F3E 10-06 16:50 → OBSVTOIN 10-08 13:17
PROVIDERS: ADMIT Surgery; ATTEND Surgery
PROC: 07B10ZX Excision of Right Neck Lymphatic, Open Approach, Diagnostic (ICD-10-PCS; principal; 2017-10-08)
PROC: 07B20ZX Excision of Left Neck Lymphatic, Open Approach, Diagnostic (ICD-10-PCS; principal; 2017-10-08)
PROC: 07B Lymphatic and Hemic Systems, Excision (ICD-10-PCS; principal; 2017-10-08)
PROC: 0GTQ0ZZ Resection of Multiple Parathyroid Glands, Open Approach (ICD-10-PCS; principal; 2017-10-08)
PROC: 0GBG0ZX Excision of Left Thyroid Gland Lobe, Open Approach, Diagnostic (ICD-10-PCS; principal; 2017-10-08)
PROC: 0GBH0ZX Excision of Right Thyroid Gland Lobe, Open Approach, Diagnostic (ICD-10-PCS; principal; 2017-10-08)
DX: D35.1 Benign neoplasm of parathyroid gland (principal); E21.3 Hyperparathyroidism, unspecified; E83.51 Hypocalcemia; R09.02 Hypoxemia; J98.11 Atelectasis; M81.0 Age-related osteoporosis without current pathological fracture; I27.20 Pulmonary hypertension, unspecified; I48.91 Unspecified atrial fibrillation; I34.1 Nonrheumatic mitral (valve) prolapse
CPT/HCPCS: J0360; J0690; J1100; J1650; J2001; J2250; J2405; J2704; J3010

== ENCOUNTER 2017-10-12 19:18 | Emergency (ER) | payer OTHER, MEDICARE ==
[2017-10-12 19:25] VITALS: RESP 18; TEMP 98.1
--- NOTE | 2017-10-12 20:29 | EDPHY ---
H & P Time Seen by Provider: 10/12/17 20:13 HPI/ROS: CHIEF COMPLAINT: Constipation HISTORY OF PRESENT ILLNESS: Patient had parathyroid surgery was discharged on October 09. She was on oxycodone then but now is only taking tramadol and has minimal pain. She has had constipation and no bowel movement for the last 3 days and has rectal fullness and discomfort. She tried Metamucil, MiraLax, Colace, senna, Dulcolax and called her primary care office at [facility] would buys her to come to the emergency department for treatment. No vomiting. No fever. Had a hysterectomy but no previous abdominal surgeries. No urinary symptoms and does not feel bloated. She says the symptoms are severe. REVIEW OF SYSTEMS: Eye: no change in vision ENT: A little bit of tugging at the surgical site but minimal pain, no discharge from the wound Cardiac: no chest pain or syncope Pulmonary: no cough or SOB Abdomen: HPI Musculoskeletal: no back pain Skin: no rash Neuro: no headache Constitutional: no fever : no urinary symptoms A comprehensive 10 point review of systems is otherwise negative aside from elements mentioned in the history of present illness. PAST MEDICAL HISTORY: Includes hysterectomy, parathyroid surgery, cataract surgery. Social history: Primary care is [facility] Yesenia Fong. General Appearance: Alert and conversant, cooperative. Eyes: No scleral icterus. ENT, Mouth: Anterior neck incision clean dry and intact. Respiratory: Normal respiratory effort, breath sounds equal, lungs are clear to auscultation. Cardiovascular: Regular rate and rhythm. Gastrointestinal: Abdomen is soft and non tender. Rectal exam shows a lot of stool in the vault, manually disimpacted. Neurological: Alert, face symmetric, normal motor and sensory in extremities. Skin: Warm and dry, no rashes. Musculoskeletal: No peripheral edema. Psychiatric: Not agitated. Emergency Department course/MDM: Patient clinically has constipation confirmed on physical exam. I do not think imaging is required. She had manual disimpaction by myself and an enema was administered by the nurse. 2104: in the bathroom. Feels better, symptoms resolving. Smoking Status: Never smoked Constitutional: Initial Vital Signs Temperature (C) 36.7 C 10/12/17 19:22 Heart Rate 92 10/12/17 19:22 Respiratory Rate 18 10/12/17 19:22 Blood Pressure 138/88 H 10/12/17 19:22 O2 Sat (%) 93 10/12/17 19:22 O2 Delivery Mode Room Air Allergies/Adverse Reactions: scopolamine Allergy (Intermediate, Verified 10/12/17 19:26) Rash adhesive tape Allergy (Verified 10/12/17 19:26) levofloxacin [From Levaquin] Allergy (Verified 10/12/17 19:26) Other-Enter Comments trimethoprim Allergy (Verified 10/12/17 19:26) LOBSTER Allergy (Uncoded 07/25/11 10:47) Vomiting Home Medications: Medication Instructions Recorded Aspirin EC [Aspirin EC 81 mg (*)] 81 mg PO DAILY 09/01/17 Cholecalciferol Vit D3 [Vitamin D3 1,000 units PO DAILY 09/01/17 (*)] Clobetasol Propionate/Emoll 1 jessica TP DAILY PRN 09/01/17 [Clobetasol Emulsion 0.05% Foam] Escitalopram Oxalate [Lexapro] 5 mg PO HS 09/01/17 Herbals/Supplements -Info Only 1 ea PO DAILY 09/01/17 Losartan Potassium [Cozaar] 100 mg PO DAILY 09/01/17 [place]-3 Fatty Acids [Fish Oil 1000 1,000 mg PO DAILY 09/01/17 mg (*)] Psyllium Husk (with Sugar) 1 tsp PO DAILY 09/01/17 [Metamucil Powder] Vitamin B Complex [B Complex] 1 each PO DAILY 09/01/17 Acetaminophen [Tylenol 325mg (*)] 650 mg PO Q4H PRN tab 10/09/17 Calcitriol [Calcitriol (*)] 0.25 mcg PO BID #30 cap 10/09/17 Calcium Carbonate [Tums 500MG (*)] 1,000 mg PO TID #90 tab.chew 10/09/17 Sennosides/Docusate Sodium 1 tab PO BID #30 tab 10/09/17 [Senokot-S] oxyCODONE/APAP 5/325 [Percocet 1 tab PO Q4HRS PRN tab 10/09/17 5/325 (*)] Medical Decision Making Differential Diagnosis: Differential considered including but not limited to constipation, perirectal abscess, bowel obstruction, ileus. Departure - Departure Disposition: Home, Routine, Self-Care Clinical Impression: Constipation Qualifiers: Constipation type: unspecified constipation type Qualified Code(s): K59.00 - Constipation, unspecified Condition: Good Instructions: Constipation (ED) Referrals: Amaris Fuentes MD [Primary Care Provider] - As per Instructions
[2017-10-12 21:22] VITALS: BP 128/84; PULSE 90; O2SAT 94
== END 2017-10-12 21:22 | disposition home or self-care (01) ==
DX: K59.00 Constipation, unspecified (principal); Z79.82 Long term (current) use of aspirin